=== PATIENT | male | born 1990 | race Caucasian/White ===

== ENCOUNTER 2023-07-20 23:36 | Inpatient (IN) | payer OTHER, SELFPAY ==
[2023-07-20 23:45] VITALS: BP 124/83; PULSE 89; RESP 16; TEMP 36.9; O2SAT 98; BMI 24.7
--- NOTE | 2023-07-20 23:46 | PC.NURSE ---
pt changed over with security, belongings placed in decon
--- NOTE | 2023-07-21 | ECG_ITS ---
Test Reason : chest pain Blood Pressure : / mmHG Vent. Rate : 055 BPM Atrial Rate : 055 BPM P-R Int : 160 ms QRS Dur : 088 ms QT Int : 430 ms P-R-T Axes : 033 054 010 degrees QTc Int : 411 ms Sinus bradycardia with marked sinus arrhythmia with occasional Premature ventricular complexes Otherwise normal ECG When compared with ECG of 21-JUL-2023 02:24, Premature ventricular complexes are now Present Referred By: Marily Blank Electronically Signed By:JOJO BERKOWITZ MD
--- NOTE | 2023-07-21 00:10 | ED.GENADULT ---
HPI - General Adult General Chief complaint: General Medical Stated complaint: possible alcohol withdrawal Time Seen by Provider: 07/21/23 00:05 Source: patient and family Mode of arrival: ambulatory Limitations: altered mental status History of Present Illness HPI narrative: leg pain and cramps. Mother states that he has been gone for 3 days, wandering without shoes, doing drugs Onset (ago): day(s) Severity: mild Related Data Allergies Allergy/AdvReac Type Severity Reaction Status Date / Time No Known Allergies Allergy Verified 07/20/23 23:51 Review of Systems Review of Systems: Yes Unobtainable due to mental status Neurologic: Denies Sensory deficit (Neuro) [facility] Social History Social History Smoked in Last 30 Days: No Use of substances other than those prescribed or required for medical reasons: Yes Substance Use Type: Crack/Cocaine Substance Use Frequency: Chronic Longstanding Last Used Substance: Hours (ago) Advance Directives: No Advance Directives Information Provided: No Physical Exam ED Vital Signs: Vital Signs - 24 hr 07/20/23 23:45 07/21/23 01:39 07/21/23 02:35 Temperature 98.4 F 98.6 F 99.6 F Pulse Rate 89 66 86 Respiratory Rate 16 16 16 Blood Pressure 124/83 133/56 L 103/56 L Pulse Oximetry 98 98 98 Oxygen Delivery Method Room Air Room Air Room Air BMI result Body Mass Index 24.7 Const Other: male appearing tired Nutritional Appearance: average body habitus Orientation/consciousness: oriented to person and patient oriented x3 Limitations: no limitations HENMT Head: Yes normal to inspection Ears: external ears normal General nose exam: Normal external nose present Mouth: Normal oral and palatal mucosa present and oropharynx normal Throat: Yes posterior oropharynx normal Eyes General: appearance normal, both eyes and all related structures Neck Neck: Yes normal visual inspection Chest Chest palpation & inspection: normal inspection of the chest Resp Auscultation: clear to auscultation bilaterally Cardio Jugular venous distension: no JVD Rate: regular rate Rhythm: regular rhythm Heart sounds: S1 normal heart sound present and S2 normal heart sound present GI Inspection: Yes normal to inspection Palpation (GI): Soft to palpation, nontender and No hepatosplenomegaly present Auscultation: normal bowel sounds General: Yes no CVA tenderness Back/Spine/Pelvis Back: no CVA tenderness Skin Other: blisters to feet Neuro General: oriented to person and patient oriented x3 Cranial nerves: Yes CN's II-XII intact bilaterally Motor exam (neuro): 5/5 motor strength present throughout Sensory Exam: No Sensory deficit (Neuro) Extrem Other: soreness to both legs General: Yes normal to inspection Psych Appearance: grossly normal Course Reevaluation(s) Reevaluation #1: EKG normal, no troponin leak, CPK 7000 will admit for rhabdomyolisis Time: 03:16 Medications Administered Generic Name Dose Route Start Last Admin Trade Name Freq PRN Reason Stop Dose Admin Sodium Chloride 1,000 mls @ 999 mls/hr 07/21/23 02:15 07/21/23 02:11 Ns IVCONT 07/21/23 04:15 999 mls/hr .Q1H1M HEIDI Administration Medical Decision Making Differential Diagnosis Differential Diagnoses: The differential diagnosis associated with the presentation includes (Drug intoxication, alcohol withdrawal, rhabdomyolisis, renal failure were all considered) Admission/Observation Consideration of admission/observation: Escalation of care including admission/observation considered (upon arrival patient was considered for admission) Consult Healthcare Provider Management of the patient was discussed with: Hospitalist Lab Data MDM Lab Attestation statement: I reviewed the patient's lab results. (negative troponin, CPK almost 7000) 07/21/23 00:30 07/21/23 00:30 Labs: Lab Results 07/21/23 07/21/23 07/21/23 Range/Units 00:30 01:38 01:41 WBC 13.1 H (4.8-10.8) X10*3/uL RBC 4.81 (4.60-5.80) X10*6/uL Hgb 14.8 (14.0-18.0) g/dl Hct 42.0 (42.0-52.0) % MCV 87.3 (80.0-98.0) fL MCH 30.8 (27.0-33.0) pg MCHC 35.2 (31.0-36.0) g/dl RDW 12.1 (11.0-16.0) % Plt Count 291 (160-400) X10*3/uL MPV 9.7 (9.4-12.4) fL Immature Gran % (Auto) 0.3 (0.0-0.4) % Neut % (Auto) 75.3 H (45-73) % Lymph % (Auto) 14.9 L (20-40) % [place] % (Auto) 8.6 (2-11) % Eos % (Auto) 0.5 (0-4) % Baso % (Auto) 0.4 (0-2) % Lymph # (Auto) 2.0 (1.2-4.9) X10*3/uL [place] # (Auto) 1.1 (0.1-1.2) X10*3/uL Eos # (Auto) 0.1 (0.0-0.4) X10*3/uL Baso # (Auto) 0.1 (0.0-0.2) X10*3/uL Abs Immat Gran (auto) 0.04 H (0.00-0.03) X10*3/uL Absolute Neuts (auto) 9.9 H (2.0-8.3) x10*3/uL Absolute Nucleated RBC 0.000 (0.0-0.012) X10*3/uL Nucleated RBC % (auto) 0.0 (0.0-0.2) /100WBC Sodium 138 (135-145) mmol/L Potassium 3.9 (3.3-5.1) mmol/L Chloride 104 (96-108) mmol/L Carbon Dioxide 25 (22-29) mmol/L Anion Gap 13 (12-20) BUN 8 L (9-16) mg/dL Creatinine 0.96 (0.5-1.4) mg/dL Estim Creat Clear Calc 107.8 Estimated GFR > 60 Random Glucose 113 (60-115) mg/dL Calcium 9.9 (8.4-10.2) mg/dL Magnesium 2.3 (1.6-2.6) mg/dL Total Creatine Kinase 6824 H (38-174) U/L Troponin I High Sens (<3.5-35.0) ng/L Urine Color Yellow Urine Appearance Clear Urine pH 8.0 (5.0-9.0) Ur Specific [place] 1.015 (1.005-1.025) Urine Protein Negative (Neg-Trace) mg/dL Urine Glucose (UA) Negative (Negative) mg/dL Urine Ketones Negative (Negative) mg/dL Urine Blood Negative (Negative) Urine Nitrite Negative (Negative) Ur Leukocyte Esterase Negative (Negative) Urine Opiates Screen Not Detected (Not Detect) Urine Fentanyl Screen Not Detected (Not Detect) Ur Barbiturates Screen Not Detected (Not Detect) Ur Phencyclidine Scrn Not Detected (Not Detect) Ur Amphetamines Screen Not Detected (Not Detect) U Benzodiazepines Scrn Not Detected (Not Detect) Urine Cocaine Screen POSITIVE H (Not Detect) U Marijuana (THC) Screen Not Detected (Not Detect) Ethyl Alcohol < 10 mg/dL 07/21/23 Range/Units 02:45 WBC (4.8-10.8) X10*3/uL RBC (4.60-5.80) X10*6/uL Hgb (14.0-18.0) g/dl Hct (42.0-52.0) % MCV (80.0-98.0) fL MCH (27.0-33.0) pg MCHC (31.0-36.0) g/dl RDW (11.0-16.0) % Plt Count (160-400) X10*3/uL MPV (9.4-12.4) fL Immature Gran % (Auto) (0.0-0.4) % Neut % (Auto) (45-73) % Lymph % (Auto) (20-40) % [place] % (Auto) (2-11) % Eos % (Auto) (0-4) % Baso % (Auto) (0-2) % Lymph # (Auto) (1.2-4.9) X10*3/uL [place] # (Auto) (0.1-1.2) X10*3/uL Eos # (Auto) (0.0-0.4) X10*3/uL Baso # (Auto) (0.0-0.2) X10*3/uL Abs Immat Gran (auto) (0.00-0.03) X10*3/uL Absolute Neuts (auto) (2.0-8.3) x10*3/uL Absolute Nucleated RBC (0.0-0.012) X10*3/uL Nucleated RBC % (auto) (0.0-0.2) /100WBC Sodium (135-145) mmol/L Potassium (3.3-5.1) mmol/L Chloride (96-108) mmol/L Carbon Dioxide (22-29) mmol/L Anion Gap (12-20) BUN (9-16) mg/dL Creatinine (0.5-1.4) mg/dL Estim Creat Clear Calc Estimated GFR Random Glucose (60-115) mg/dL Calcium (8.4-10.2) mg/dL Magnesium (1.6-2.6) mg/dL Total Creatine Kinase (38-174) U/L Troponin I High Sens < 2.7 (<3.5-35.0) ng/L Urine Color Urine Appearance Urine pH (5.0-9.0) Ur Specific [place] (1.005-1.025) Urine Protein (Neg-Trace) mg/dL Urine Glucose (UA) (Negative) mg/dL Urine Ketones (Negative) mg/dL Urine Blood (Negative) Urine Nitrite (Negative) Ur Leukocyte Esterase (Negative) Urine Opiates Screen (Not Detect) Urine Fentanyl Screen (Not Detect) Ur Barbiturates Screen (Not Detect) Ur Phencyclidine Scrn (Not Detect) Ur Amphetamines Screen (Not Detect) U Benzodiazepines Scrn (Not Detect) Urine Cocaine Screen (Not Detect) U Marijuana (THC) Screen (Not Detect) Ethyl Alcohol mg/dL Independent Interpretation I performed an independent interpretation of an: EKG (sinus 70, no st or twave changes) Independent Historian Clinical information obtained from an independent historian. History obtained from or confirmed by: Parent (mother) Chronic Conditions Patient?s care impacted by: Other (drug use) Social Determinants Patient?s care significantly limited by Social Determinants of Health including: Alcoholism and drug addiction in family Discharge Plan Discharge Clinical Impression: Rhabdomyolysis, Cocaine abuse Patient Disposition: Admitted As Inpatient
--- NOTE | 2023-07-21 00:18 | PC.NURSE ---
Family present in room with pt, family reported that pt overdosed a few days ago of unknown drug
[2023-07-21 00:35] LABS: MANUAL DIFF FLAG NO
[2023-07-21 00:37] LABS: Basophils Absolute Auto 0.1 X10*3/uL (0.0-0.2); Basophils Percent Auto 0.4 % (0-2); Eosinophils Absolute Auto 0.1 X10*3/uL (0.0-0.4); Eosinophils Percent Auto 0.5 % (0-4); Hemoglobin 14.8 g/dl (14.0-18.0); Imm Gran Abs Auto 0.04 X10*3/uL (0.00-0.03); Imm Gran Pct Auto 0.3 % (0.0-0.4); Lymphocytes Percent Auto 14.9 % (20-40); Mean Corpuscular HGB Conc 35.2 g/dl (31.0-36.0); Mean Corpuscular Hemoglobin 30.8 pg (27.0-33.0); Mean Corpuscular Volume 87.3 fL (80.0-98.0); Mean Platelet Volume 9.7 fL (9.4-12.4); Monocytes Absolute Auto 1.1 X10*3/uL (0.1-1.2); Monocytes Percent Auto 8.6 % (2-11); Neutrophils Absolute Auto 9.9 x10*3/uL (2.0-8.3); Neutrophils Percent Auto 75.3 % (45-73); Platelet Count 291 X10*3/uL (160-400); Red Blood Count 4.81 X10*6/uL (4.60-5.80); Red Cell Distribution Width 12.1 % (11.0-16.0); White Blood Count 13.1 X10*3/uL (4.8-10.8)
--- NOTE | 2023-07-21 00:37 | PC.NURSE ---
pt reported he lost the battery charger for his hearing aids,
[2023-07-21 00:53] LABS: Anion Gap 13 (12-20); Blood Urea Nitrogen 8 mg/dL (9-16); Calcium 9.9 mg/dL (8.4-10.2); Carbon Dioxide 25 mmol/L (22-29); Chloride 104 mmol/L (96-108); Creatinine Clr Calc Pharmacy 107.8; Estimated Glomerular Filt Rate > 60; Ethanol < 10 mg/dL; Glucose Random 113 mg/dL (60-115); Magnesium 2.3 mg/dL (1.6-2.6); Potassium 3.9 mmol/L (3.3-5.1); Sodium 138 mmol/L (135-145)
--- NOTE | 2023-07-21 01:38 | PC.NURSE ---
pt straight cath for urine. provider aware
[2023-07-21 01:39] VITALS: BP 133/56; PULSE 66; RESP 16; TEMP 37; O2SAT 98
[2023-07-21 01:55] LABS: Appearance Urine Clear; Color Urine Yellow; Glucose Urine UA Negative (Negative); Leukocyte Esterase Urine Negative (Negative); Nitrite Urine Negative (Negative); Specific Gravity - Urine 1.015 (1.005-1.025); Urine Blood Negative (Negative); Urine Ketones Negative (Negative); Urine Protein Negative (Neg-Trace)
[2023-07-21 02:11] LABS: Amphetamine Screen Urine Not Detected (Not Detect); Barbiturates, Urine Not Detected (Not Detect); Benzodiazepines Screen Urine Not Detected (Not Detect); Cannabinoid Screen Urine Not Detected (Not Detect); Cocaine Screen Urine POSITIVE (Not Detect); Fentanyl, urine Not Detected (Not Detect); Opiate Screen Urine Not Detected (Not Detect); Phencyclidine Screen Urine Not Detected (Not Detect)
[2023-07-21] MEDS: 0.9 % Sodium Chloride 1,000 ML 999 ML IVCONT ×2 (02:11→03:15)
--- NOTE | 2023-07-21 02:15 | ECG_ITS ---
Test Reason : DRUG USE Blood Pressure : / mmHG Vent. Rate : 070 BPM Atrial Rate : 070 BPM P-R Int : 166 ms QRS Dur : 088 ms QT Int : 384 ms P-R-T Axes : 063 068 028 degrees QTc Int : 414 ms Normal sinus rhythm with sinus arrhythmia Normal ECG No previous ECGs available Referred By: Mendez Harrison Electronically Signed By:JOJO BERKOWITZ MD
[2023-07-21 02:35] VITALS: BP 103/56; PULSE 86; RESP 16; TEMP 37.6; O2SAT 98
--- NOTE | 2023-07-21 02:49 | MHC.EDTECH ---
Pt ekg taken and was read by Provider ,Trop drawn and sent to lab ,vitals taken ,Pt was hooked up to Scarifier Operator ,Pt belongings list done ,Pt only has a blanket at bedside that his mother brought in ,The rest of Pt belongings are locked up in decon ,Pt alert and oriented ,Pt was moved from [facility] Room # 4 to main ED ROOM #3.
[2023-07-21 03:11] LABS: Troponin-I High Sensitivity < 2.7 ng/L (<3.5-35.0)
--- NOTE | 2023-07-21 03:21 | P.HPHOSP_ITS ---
History of Present Illness Date of Service: 07/21/23 Chief Complaint: Muscle cramps This is a 32-year-old male with pertinent history of cocaine use disorder who presents to the emergency department for evaluation of leg pain and cramps. Unable to obtain history from the patient as patient is very lethargic at the time of my examination. As per patient's mom who was present earlier, patient has been missing for 3 days and has been wandering around doing drugs. Patient is only eye opening to to verbal stimulus and not answering questions or following commands. Unable to obtain review of systems. In the emergency department, UDS was positive for cocaine and CPK found to be elevated Review of Systems 2 Review of Systems: Yes Unobtainable due to mental status PMFSH Medical History Cocaine abuse Pertinent family history: Unable to obtain Social History Smoked in Last 30 Days: No Use of substances other than those prescribed or required for medical reasons: Yes Substance Use Type: Crack/Cocaine Substance Use Frequency: Chronic Longstanding Last Used Substance: Hours (ago) Advance Directives: No Advance Directives Information Provided: No Meds Allergies Allergy/AdvReac Type Severity Reaction Status Date / Time No Known Allergies Allergy Verified 07/20/23 23:51 Active Medications: Current Medications Sodium Chloride (Ns) 1,000 mls @ 999 mls/hr IVCONT .Q1H1M HEIDI Stop: 07/21/23 04:15 Last Admin: 07/21/23 03:15 Dose: 999 mls/hr Physical Exam 2 Vital Signs and Narrative: Vital Signs: Last Vital Signs Temp 99.6 F 07/21/23 02:35 Pulse 86 07/21/23 02:35 Resp 16 07/21/23 02:35 BP 103/56 L 07/21/23 02:35 Pulse Ox 98 07/21/23 02:35 O2 Del Method Room Air 07/21/23 02:35 BMI result Body Mass Index 24.7 Middle-aged male lying in bed in no distress Neck supple, no JVD Regular rate and rhythm, S1-S2 heard Regular breath sounds bilaterally, no wheezing or crackles appreciated Abdomen soft nontender, no guarding, no rigidity Patient is drowsy and only eye opening to verbal stimulus, unable to assess orientation, non conversational and not following commands Results Labs 07/21/23 00:30 07/21/23 00:30 Labs: Laboratory Results - last 24 hr 07/21/23 07/21/23 07/21/23 00:30 01:38 01:41 MCV 87.3 MCH 30.8 MCHC 35.2 RDW 12.1 Plt Count 291 MPV 9.7 Immature Gran % (Auto) 0.3 Neut % (Auto) 75.3 H Lymph % (Auto) 14.9 L [place] % (Auto) 8.6 Eos % (Auto) 0.5 Baso % (Auto) 0.4 Lymph # (Auto) 2.0 [place] # (Auto) 1.1 Eos # (Auto) 0.1 Baso # (Auto) 0.1 Abs Immat Gran (auto) 0.04 H Absolute Neuts (auto) 9.9 H Absolute Nucleated RBC 0.000 Nucleated RBC % (auto) 0.0 Anion Gap 13 Estim Creat Clear Calc 107.8 Estimated GFR > 60 Random Glucose 113 Calcium 9.9 Magnesium 2.3 Total Creatine Kinase 6824 H Urine Color Yellow Urine Appearance Clear Urine pH 8.0 Ur Specific [place] 1.015 Urine Protein Negative Urine Glucose (UA) Negative Urine Ketones Negative Urine Blood Negative Urine Nitrite Negative Ur Leukocyte Esterase Negative Urine Opiates Screen Not Detected Urine Fentanyl Screen Not Detected Ur Barbiturates Screen Not Detected Ur Phencyclidine Scrn Not Detected Ur Amphetamines Screen Not Detected U Benzodiazepines Scrn Not Detected Urine Cocaine Screen POSITIVE H U Marijuana (THC) Screen Not Detected Ethyl Alcohol < 10 Assessment and Plan (1) Rhabdomyolysis: Status: Acute (2) Cocaine abuse: Status: Acute Plan This is a 32-year-old male with pertinent history of cocaine use disorder who presents to the emergency department for evaluation of leg pain and cramps. #. Acute rhabdomyolysis, non exertional and nontraumatic: Due to cocaine use disorder. Will admit patient and continue IV crystalloid resuscitation. No kidney injury. Repeat CPK in a.m. #. Acute toxic encephalopathy in the setting of cocaine use disorder #. Reactive leukocytosis #. Cocaine use disorder: Monitor for withdrawals. Consulting Addiction Team, appreciate assistance DVT prophylaxis: Lovenox Admit as inpatient and will require two night minimum hospital stay for IV crystalloid resuscitation Time Spent With Patient Time: Total time managing care of this patient today ____ minutes. Quality Stroke Does the patient have a stroke diagnosis?: No VTE Prior VTE?: No VTE Risk Level:: Medical - moderate - high VTE Device Contraindication: Treatment Not Indicated VTE Drug Contraindication: N/A - Med Ordered
[2023-07-21] MEDS: Enoxaparin Sodium 40 MG/0.4 ML SYRINGE SUBCUT (04:28)
--- NOTE | 2023-07-21 04:28 | PC.NURSE ---
Fluids delayed due to previously ordered fluids flowing slowly. Floor RN aware.
[2023-07-21 04:47] LABS: MANUAL DIFF FLAG NO
[2023-07-21 04:49] LABS: Basophils Percent Auto 0.3 % (0-2); Eosinophils Absolute Auto 0.1 X10*3/uL (0.0-0.4); Eosinophils Percent Auto 0.8 % (0-4); Hematocrit 40.4 % (42.0-52.0); Hemoglobin 14.1 g/dl (14.0-18.0); Imm Gran Abs Auto 0.03 X10*3/uL (0.00-0.03); Imm Gran Pct Auto 0.3 % (0.0-0.4); Lymphocytes Absolute Auto 1.8 X10*3/uL (1.2-4.9); Mean Corpuscular HGB Conc 34.9 g/dl (31.0-36.0); Mean Corpuscular Hemoglobin 30.9 pg (27.0-33.0); Mean Corpuscular Volume 88.4 fL (80.0-98.0); Mean Platelet Volume 9.8 fL (9.4-12.4); Monocytes Absolute Auto 1.1 X10*3/uL (0.1-1.2); Monocytes Percent Auto 9.9 % (2-11); Neutrophils Absolute Auto 7.6 x10*3/uL (2.0-8.3); Neutrophils Percent Auto 71.7 % (45-73); Platelet Count 267 X10*3/uL (160-400); Red Blood Count 4.57 X10*6/uL (4.60-5.80); Red Cell Distribution Width 12.3 % (11.0-16.0); White Blood Count 10.6 X10*3/uL (4.8-10.8)
[2023-07-21 05:03] LABS: Anion Gap 14 (12-20); Blood Urea Nitrogen 7 mg/dL (9-16); Calcium 8.4 mg/dL (8.4-10.2); Carbon Dioxide 21 mmol/L (22-29); Chloride 111 mmol/L (96-108); Estimated Glomerular Filt Rate > 60; Glucose Random 107 mg/dL (60-115); Sodium 142 mmol/L (135-145)
[2023-07-21] MEDS: 0.9 % Sodium Chloride 1,000 ML 150 ML IVCONT ×4 (05:27→23:31)
[2023-07-21 05:30] VITALS: BMI 25.9
[2023-07-21 06:31] VITALS: BP 121/67; PULSE 65; RESP 18; TEMP 36.5; O2SAT 97
[2023-07-21 07:30] VITALS: BP 107/72; PULSE 69; RESP 18; TEMP 36.2; O2SAT 98
--- NOTE | 2023-07-21 08:26 | PHA.MEDREC ---
Pharmacy Consult ? Medication Reconciliation Pharmacy has completed the medication reconciliation.PT STATES IT'S BEEN SEVERAL WEEKS SINCE TAKING HIS MEDICATION. ONLY ON SUBOXONE.
--- NOTE | 2023-07-21 10:36 | PM.EVENT ---
Event Note Date of Service: 07/21/23 Event Note: This is a 32-year-old male with pertinent history of cocaine use disorder who presents to the emergency department for evaluation of leg pain and cramps. Acute rhabdomyolysis non exertional and nontraumatic Due to cocaine use disorder. continue IV crystalloid resuscitation. No kidney injury. Repeat CPK down to 4911 Acute toxic encephalopathy. Resolved in the setting of cocaine use disorder Reactive leukocytosis resolved Cocaine use disorder Monitor for withdrawals. Consulting Addiction Team DVT prophylaxis: Lovenox Attending Dr. Keen Admit as inpatient and will require two night minimum hospital stay for IV crystalloid resuscitation Time Spent With Patient Time: Total time managing care of this patient today ____ minutes.
[2023-07-21] MEDS: Buprenorphine/Naloxone 4/1 mg FILM 1 FILM SUBLINGUAL (13:14)
--- NOTE | 2023-07-21 14:07 | MHC.RECOVRN ---
atomizer assembler met with patient in room 359-1 for Addiction Medicine Consult for Cocaine Use. Patient is awake, just laying back down from using the restroom. He admits to feeling tired, but agreeable to talk. Patient is very [place]- reports he does not have his hearing aides. Patient confirmed he is able to read, therefore RN showed him questions and he responded accordingly. He came to the ER for leg pain/cramps. Family had reported patient was missing for 3 days doing drugs . Patient reports he first started using cocaine in 2015 by snorting it, he then began smoking it instead. Reports a history of 1 overdose ~3 years ago. He states he's had long periods of abstinence, however relapsed recently. I was sober for 12 months up until 3 weeks ago. Then I relapsed and smoked cocaine for like 4 days straight. Then I stopped for 2 weeks and I relapsed again on . I smoked cocaine , Saturday, and Saturday. Patient used ~10 baggies per day with each relapse. Last use was last night around 7pm. He is on Suboxone- take home doses from [facility] in [place]. Last filled 06/19/23: 4-1mg films, dose= 6mg PO daily. Given 28 days worth. Prescriber Sommer Nguyen. Patient stated that he had run out and had not taken his Suboxone in 4 days as he had an issue with [employer] and his insurance. Currently, he reports to craving cocaine a little bit . He admits to feeling really tired as he hasn't slept in days . He reports feeling sweaty- hot/cold, having one bout of diarrhea just prior to my visit, having a runny nose, feeling anxious and mild full body aches. Denies N/V, tremor, yawning, or h/a. Patient also reports occ cigarette smoking- interested in patch if he feels withdrawal symptoms. Will notify covering RN. Patient verbalized wanting to fully abstain from cocaine use. He would like to get back on track with the Suboxone use and DC back to his regular clinic. Patient requesting to sleep, left educational material for him to review when ready. Discussed w/Tiana Dorantes APRN. Suboxone ordered.
[2023-07-21 15:39] VITALS: BP 117/59; PULSE 59; RESP 18; TEMP 36; O2SAT 97
--- NOTE | 2023-07-21 16:50 | MHC.CM.PN ---
CM ATTEMPTED TO MEET WITH PT WHO HAD SEVERAL VISITORS AND A NURSE IN THE ROOM CM WILL RETURN
[2023-07-21 18:33] LABS: Troponin-I High Sensitivity < 2.7 ng/L (<3.5-35.0)
[2023-07-21 20:00] VITALS: BP 125/57; PULSE 66; RESP 18; TEMP 36; O2SAT 97
[2023-07-22] MEDS: Enoxaparin Sodium 40 MG/0.4 ML SYRINGE SUBCUT (03:08)
[2023-07-22 04:00] VITALS: BP 129/64; PULSE 89; RESP 16; TEMP 36.3; O2SAT 93
[2023-07-22] MEDS: 0.9 % Sodium Chloride 1,000 ML 150 ML IVCONT (05:56)
[2023-07-22 07:29] VITALS: BP 109/68; PULSE 55; RESP 16; TEMP 36.2; O2SAT 97
[2023-07-22] MEDS: Buprenorphine/Naloxone 4/1 mg FILM 1 FILM SUBLINGUAL (08:38)
[2023-07-22 09:02] LABS: Anion Gap 10 (12-20); Blood Urea Nitrogen 5 mg/dL (9-16); Calcium 8.5 mg/dL (8.4-10.2); Carbon Dioxide 23 mmol/L (22-29); Chloride 112 mmol/L (96-108); Creatinine Clr Calc Pharmacy 124.7; Estimated Glomerular Filt Rate > 60; Glucose Random 103 mg/dL (60-115); Potassium 3.9 mmol/L (3.3-5.1); Sodium 141 mmol/L (135-145)
--- NOTE | 2023-07-22 09:18 | PM.DS ---
DS: Providers Provider Date of Service: 07/22/23 Date of admission: 07/21/23 03:19 Primary care physician: Unknown Physician Consults: 07/21/23 03:21 Addiction Medicine Routine Consulting Provider: Addiction Fredo Reason for consultation: cocaine use disorder DS: Diagnosis Discharge Diagnosis (1) Rhabdomyolysis: Status: Acute (2) Cocaine abuse: Status: Acute DS: Summary Hospital Course Hospital Course: This is a 32-year-old male with pertinent history of cocaine use disorder who presents to the emergency department for evaluation of leg pain and cramps. Unable to obtain history from the patient as patient is very lethargic at the time of my examination. As per patient's mom who was present earlier, patient has been missing for 3 days and has been wandering around doing drugs. Patient is only eye opening to to verbal stimulus and not answering questions or following commands. Unable to obtain review of systems. In the emergency department, UDS was positive for cocaine and CPK found to be elevated 32-year-old man treated for acute rhabdomyolysis after being found down for unknown period of time. He has history of smoking cocaine. He was treated with IV fluids, he had no acute kidney injury. His CPK has trended down significantly. Initially had acute toxic encephalopathy likely secondary to the cocaine use but resolved. He was seen evaluated by the Addiction Medicine team and is on Suboxone. He was encouraged to seek outpatient treatments for cessation of drug use. Time Spent with Patient Time attestation: Total time managing care of this patient today ____ minutes. Discharge coordination time: Greater than 30 minutes Quality: Safe Use of Opioids Does Pt have an Active Cancer Diagnosis on the Problem List?: No Quality: Stroke Does the patient have a stroke diagnosis?: No Physical Exam Vital Signs: Vital Signs: Last Vital Signs Temp 97.1 F 07/22/23 07:29 Pulse 55 07/22/23 07:29 Resp 16 07/22/23 07:29 BP 109/68 07/22/23 07:29 Pulse Ox 97 07/22/23 07:29 O2 Del Method Room Air 07/22/23 07:29 BMI result Body Mass Index 25.9 Appearing in no acute distress, hard of hearing head is normocephalic atraumatic eyes pupils are PERRLA sclera is anicteric mouth throat mucous membranes are intact and moist neck is supple no lymphadenopathy, no JVD noted lung sounds are clear to auscultation heart regular rate rhythm, clear S1, S2 positive bowel sounds, abdomen is soft, nontender neuro patient is alert x3, no focal deficits DS: Data Data Completed and Pending Labs on day of discharge: Laboratory Results - last 24 hr 07/21/23 07/22/23 17:47 08:16 Sodium 141 Potassium 3.9 Chloride 112 H Carbon Dioxide 23 Anion Gap 10 L BUN 5 L Creatinine 0.83 Estim Creat Clear Calc 124.7 Estimated GFR > 60 Random Glucose 103 Calcium 8.5 Total Creatine Kinase 1574 H Troponin I High Sens < 2.7 Discharge Plan Discharge Anticipated Discharge Date/Time: 07/22/23 09:16 Patient Disposition: Home, Self-Care Discharge Diagnosis: Acute rhabdomyolysis Cocaine abuse Referrals: Tiana Dorantes CNP [Nurse Practitioner] - 1 Week Discharge Medications: Continued buprenorphine-naloxone 4-1 mg film 7 mg sublingual DAILY Discharge Orders: Discharge Order (Routine); Ordered 07/22/23 Ordered By: Marily Blank Diet: Advance to usual diet Activity on Discharge: As tolerated Stand Alone Forms: Patient Portal Discharge page Care Plan Goals: Stop using illicit drugs. Seek out outpatient resources for help with cessation. Health Concerns: Rhabdomyolysis Cocaine abuse Plan of Treatment: Follow-up with primary care provider as needed Take all medications as prescribed Assessment: See discharge summary
--- NOTE | 2023-07-22 09:36 | MHC.CM.PN ---
pt being dcd has own transportaion no servies
== END 2023-07-22 12:53 | disposition home or self-care (01) | DRG 557 ==
LOC: HO.ED 07-21 03:21 → HO.EDOVER 07-21 03:27 → HO.S3 07-21 03:36
PROVIDERS: Admitting Provider Student in an Organized Health Care Education/Training Program; Emergency Provider Emergency Medicine; Visit Provider Nurse Practitioner Acute Care
DX: M62.82 Rhabdomyolysis (principal); G92.8 Other toxic encephalopathy; F11.20 Opioid dependence, uncomplicated; F14.10 Cocaine abuse, uncomplicated
CPT/HCPCS: 36415; 80048; 80307; 81003; 82550; 83735; 84484; 85025; 93005; 99285; J1650

== ENCOUNTER → 2023-07-21 03:19 | Outpatient (BNV) | payer SELFPAY | PROVIDERS: Admitting Provider Student in an Organized Health Care Education/Training Program; Emergency Provider Emergency Medicine; Visit Provider Student in an Organized Health Care Education/Training Program | DX: M62.82 Rhabdomyolysis (principal); F14.10 Cocaine abuse, uncomplicated; Z59.00 Homelessness unspecified | CPT/HCPCS: 99222; 99239; 99499 ==

== ENCOUNTER 2023-12-31 04:05 | Emergency (ER) | payer OTHER, SELFPAY ==
--- NOTE | 2023-12-31 | ECG_ITS ---
Test Reason : ETOH Blood Pressure : / mmHG Vent. Rate : 076 BPM Atrial Rate : 076 BPM P-R Int : 168 ms QRS Dur : 088 ms QT Int : 378 ms P-R-T Axes : 058 064 028 degrees QTc Int : 425 ms Normal sinus rhythm Normal ECG When compared with ECG of 21-JUL-2023 17:25, Premature ventricular complexes are no longer Present T wave inversion no longer evident in Anterior leads Referred By: Generic ED Physician Electronically Signed By:Arie Bhandari
[2023-12-31 04:25] VITALS: BMI 21.8
[2023-12-31 04:33] VITALS: BP 134/95; PULSE 88; RESP 16; TEMP 36.8; O2SAT 99
--- NOTE | 2023-12-31 04:45 | PC.NURSE ---
PT is currently denying SI, reports I was just being me .Denies HI, AH/VH. Reports recent crack cocaine use as well as alcohol consumption. Changed over with security, sitter at bedside for safety. Awaiting provider.
[2023-12-31 05:10] LABS: MANUAL DIFF FLAG NO
[2023-12-31 05:11] LABS: Basophils Absolute Auto 0.1 X10*3/uL (0.0-0.2); Basophils Percent Auto 0.5 % (0-2); Eosinophils Percent Auto 0.4 % (0-4); Hematocrit 43.7 % (42.0-52.0); Imm Gran Abs Auto 0.03 X10*3/uL (0.00-0.03); Imm Gran Pct Auto 0.3 % (0.0-0.4); Lymphocytes Absolute Auto 2.3 X10*3/uL (1.2-4.9); Lymphocytes Percent Auto 25.1 % (20-40); Mean Corpuscular HGB Conc 34.3 g/dl (31.0-36.0); Mean Corpuscular Hemoglobin 31.1 pg (27.0-33.0); Mean Corpuscular Volume 90.7 fL (80.0-98.0); Mean Platelet Volume 9.5 fL (9.4-12.4); Monocytes Absolute Auto 0.5 X10*3/uL (0.1-1.2); Monocytes Percent Auto 5.7 % (2-11); Neutrophils Absolute Auto 6.2 x10*3/uL (2.0-8.3); Platelet Count 281 X10*3/uL (160-400); Red Blood Count 4.82 X10*6/uL (4.60-5.80); Red Cell Distribution Width 12.2 % (11.0-16.0); White Blood Count 9.2 X10*3/uL (4.8-10.8)
[2023-12-31 05:21] LABS: Amphetamine Screen Urine Not Detected (Not Detect); Barbiturates, Urine Not Detected (Not Detect); Benzodiazepines Screen Urine Not Detected (Not Detect); Cannabinoid Screen Urine Not Detected (Not Detect); Cocaine Screen Urine POSITIVE (Not Detect); Fentanyl, urine Not Detected (Not Detect); Opiate Screen Urine Not Detected (Not Detect); Phencyclidine Screen Urine Not Detected (Not Detect)
[2023-12-31 05:34] LABS: Alanine Aminotransferase 17 U/L (0-40); Albumin Level 4.6 g/dL (3.5-5.0); Alkaline Phosphatase 85 U/L (39-117); Anion Gap 14 (12-20); Aspartate Amino Transferase 23 U/L (5-37); Bilirubin Total 0.4 mg/dL (0.0-1.0); Blood Urea Nitrogen 10 mg/dL (9-16); Calcium 9.3 mg/dL (8.4-10.2); Carbon Dioxide 26 mmol/L (22-29); Chloride 108 mmol/L (96-108); Creatinine Clr Calc Pharmacy 103.2; Estimated Glomerular Filt Rate > 60; Ethanol 133 mg/dL; Glucose Random 82 mg/dL (60-115); Potassium 4.2 mmol/L (3.3-5.1); Sodium 144 mmol/L (135-145); Total Protein 7.5 g/dL (6.5-8.0)
--- NOTE | 2023-12-31 05:46 | PC.NURSE ---
patient expresses desire to see care team, expressed to patient about sobriety client expresses passive defiance to established norms.
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
[2023-12-31 07:34] VITALS: BP 120/74; PULSE 70; RESP 20; TEMP 36.6; O2SAT 99
--- NOTE | 2023-12-31 08:05 | PC.NURSE ---
PT IS A/O X 3 NO SOB/COLLEEN NOTED SPEAKS IN FULL SENTENCES. AMB (I) GAIT STEADY TO BATHROOM, HALLWAY AND BTB. PT IS MOSTLY PACING THE HALLWAY AND KEEPS ASKING ABOUT WHEN HE IS GOING TO BE D/C'D HOME. PT DENIES ANY SI/HI. PT ALSO DENIES ANY PAIN/DISC. PT AWARE OF PLAN OF CARE. WILL CONTINUE TO MONITOR.
--- NOTE | 2023-12-31 12:44 | PC.NURSE ---
PT'S MOTHER IS INN THE HALLWAY WITH THE PT. PT IS BEING EVAL BY NIDA SANON. PT AWARE OF PLAN OF CARE.
[2023-12-31 13:44] VITALS: BP 120/74; PULSE 70; RESP 20; TEMP 36.6; O2SAT 99
== END 2023-12-31 14:06 | disposition home or self-care (01) ==
PROVIDERS: Emergency Provider Emergency Medicine
DX: F14.10 Cocaine abuse, uncomplicated (principal)
CPT/HCPCS: 36415; 80053; 80307; 85025; 93005; 99285; S9485

== ENCOUNTER → 2023-12-31 05:23 | Outpatient (BNV) | payer OTHER, SELFPAY | PROVIDERS: Emergency Provider Emergency Medicine; Visit Provider Internal Medicine Cardiovascular Disease | DX: I49.3 Ventricular premature depolarization (principal) | CPT/HCPCS: 93010 ==

== ENCOUNTER → 2024-01-02 16:18 | Outpatient (AMB) | payer OTHER, SELFPAY ==
[2024-01-02 16:26] VITALS: BP 110/60; PULSE 89; RESP 16; O2SAT 98
--- NOTE | 2024-01-02 16:26 | MHC.AM.SUB ---
Intake Vital Signs 01/02/24 16:26 BP 110/60 Blood Pressure Location Lt brachial Position Sitting Respiration 16 Pulse 89 Pulse Source Pulse Oximeter Pulse Oximetry (%) 98 Intake Visit Reasons: Intake Allergies No Known Allergies Allergy (Verified 12/31/23 04:35) HPI Intake HPI Details Patient presents for intake as referral from CARE Team Pt presents as guarded and vaguely paranoid Difficult to obtain information from him during interview States last visit to PCP was 1.5 yrs ago Currently unemployed and living with his boss Would like to get out of here referring to the area, but declining to disclose where he wants to go because they might find out , would no elaborate who they are Reports intermittent cocaine use Started using hardcore when he was 27 When asked the amount he was using he replied depends Has been section 35 a couple of times Feels as though he does not crave cocaine and can stop whenever he would like Not receptive to any recovery supports discussed HPI Comments History of Present Illness Details Patient presents for MAT visit [facility] Medical History (Updated 01/07/24 @ 14:10 by Ratna Sommers NP) Cocaine abuse Social History Household Members: Unknown / Unable to assess Housing: Unknown / Unable to assess Unable to assess alcohol history related to: Unknown Patient Tobacco Use Status: Tobacco use Unknown Substance Use Type: Crack/Cocaine service: No Review of Systems Const Reports as per HPI Physical Exam Vital Signs: Last Vital Signs Pulse 89 01/02/24 16:26 Resp 16 01/02/24 16:26 BP 110/60 01/02/24 16:26 Pulse Ox 98 01/02/24 16:26 Const General: healthy appearing and no acute distress Resp Effort & Inspection: normal respiratory effort and able to speak in complete sentences Psych Appearance: grossly normal Mental Status: mental status grossly normal Speech and movement: Normal speech and movement present Affect: Indifferent affect present Attitude: Guarded attititude/behavior present Thought process: Normal thought process present Assessment & Plan Assessment & Plan (1) Cocaine abuse: Code(s): F14.10 - Cocaine abuse, uncomplicated Plan: -Pt provided with fentanyl strips and instructed how to use them -Harm reduction discussed -Follow up as needed with CCC Coding Level of Care Code New Pt Level 4 (82479) Diagnoses Cocaine abuse F14.10
== END ==
PROVIDERS: Visit Provider Nurse Practitioner Family
DX: F14.10 Cocaine abuse, uncomplicated (principal)
CPT/HCPCS: 99204

== ENCOUNTER → 2024-01-02 16:18 | Outpatient (BNVA) | payer OTHER, SELFPAY | PROVIDERS: Visit Provider Nurse Practitioner Family | DX: F14.10 Cocaine abuse, uncomplicated (principal) | CPT/HCPCS: 99202 ==

== ENCOUNTER 2024-01-30 17:28 | Emergency (ER) | payer OTHER, SELFPAY ==
--- NOTE | ~2024-01-30 | XR_ITS ---
EXAMINATION: XR HAND, RIGHT CLINICAL INFORMATION: Pain of right hand. Swelling and tenderness. COMPARISON: None available. TECHNIQUE: PA, lateral, and oblique views of the right hand. FINDINGS: Bones have normal alignment throughout the hand and wrist. No acute fracture or subluxation. Old healed boxer's fracture of the fifth metacarpal. The joint spaces are maintained. No erosions or periostitis. There appears to be nonspecific soft tissue swelling of the hand without radiopaque foreign body or soft tissue gas. XR/XR hand RT min 3V IMPRESSION: * Old healed boxer's fracture of the fifth metacarpal. * Otherwise, bones and joints of the hand and wrist are normal. No evidence of acute osseous injury or osteomyelitis. * There appears to be nonspecific soft tissue swelling of the hand.
[2024-01-30 17:37] VITALS: BP 166/100; PULSE 112; O2SAT 98
--- NOTE | 2024-01-30 17:37 | ECG_ITS ---
Test Reason : ETOH/SUBSTANCE Blood Pressure : / mmHG Vent. Rate : 088 BPM Atrial Rate : 088 BPM P-R Int : 170 ms QRS Dur : 092 ms QT Int : 372 ms P-R-T Axes : 068 070 015 degrees QTc Int : 450 ms Sinus rhythm with frequent Premature ventricular complexes Otherwise normal ECG When compared with ECG of 31-DEC-2023 05:23, Premature ventricular complexes are now Present Referred By: Jordon Silveira Electronically Signed By:Arie Bhandari
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
[2024-01-30 17:51] VITALS: BP 156/90; PULSE 103; RESP 16; TEMP 37.5; O2SAT 99
[2024-01-30 17:58] VITALS: BP 156/90; PULSE 103; RESP 16; TEMP 37.5; O2SAT 99; BMI 27.4
[2024-01-30 18:14] LABS: MANUAL DIFF FLAG NO
[2024-01-30 18:22] LABS: Basophils Absolute Auto 0.1 X10*3/uL (0.0-0.2); Basophils Percent Auto 0.4 % (0-2); Eosinophils Percent Auto 0.2 % (0-4); Hematocrit 38.6 % (42.0-52.0); Hemoglobin 14.2 g/dl (14.0-18.0); Imm Gran Abs Auto 0.07 X10*3/uL (0.00-0.03); Imm Gran Pct Auto 0.5 % (0.0-0.4); Lymphocytes Absolute Auto 1.6 X10*3/uL (1.2-4.9); Lymphocytes Percent Auto 11.8 % (20-40); Mean Corpuscular HGB Conc 36.8 g/dl (31.0-36.0); Mean Corpuscular Hemoglobin 32.1 pg (27.0-33.0); Mean Corpuscular Volume 87.3 fL (80.0-98.0); Mean Platelet Volume 9.5 fL (9.4-12.4); Monocytes Absolute Auto 1.3 X10*3/uL (0.1-1.2); Monocytes Percent Auto 9.5 % (2-11); Neutrophils Absolute Auto 10.6 x10*3/uL (2.0-8.3); Neutrophils Percent Auto 77.6 % (45-73); Platelet Count 224 X10*3/uL (160-400); Red Blood Count 4.42 X10*6/uL (4.60-5.80); Red Cell Distribution Width 11.8 % (11.0-16.0); White Blood Count 13.6 X10*3/uL (4.8-10.8)
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
[2024-01-30 18:34] LABS: Alanine Aminotransferase 24 U/L (0-40); Albumin Level 4.4 g/dL (3.5-5.0); Alkaline Phosphatase 82 U/L (39-117); Anion Gap 14 (12-20); Aspartate Amino Transferase 39 U/L (5-37); Bilirubin Direct 0.3 mg/dL (0.0-0.5); Bilirubin Total 0.8 mg/dL (0.0-1.0); Blood Urea Nitrogen 13 mg/dL (9-16); Calcium 9.4 mg/dL (8.4-10.2); Carbon Dioxide 23 mmol/L (22-29); Chloride 106 mmol/L (96-108); Creatinine Clr Calc Pharmacy 103.9; Estimated Glomerular Filt Rate > 60; Ethanol < 10 mg/dL; Glucose Random 116 mg/dL (60-115); Lipase 11 U/L (8-78); Potassium 3.4 mmol/L (3.3-5.1); Sodium 140 mmol/L (135-145); Total Protein 6.9 g/dL (6.5-8.0)
[2024-01-30 18:42] VITALS: PULSE 103
--- NOTE | 2024-01-30 19:05 | PC.NURSE ---
Per MD Silveira pt now under section 12 (placed in locker 9). pt changed over into hospital attire, threatening security staff.
--- NOTE | 2024-01-30 19:16 | PC.NURSE ---
report given to CHERI Salvador pt to move to Pod
[2024-01-30] MEDS: Doxycycline Monohydrate 100 MG CAPSULE PO (19:38)
[2024-01-30 19:55] LABS: Appearance Urine Clear; Color Urine Yellow; Glucose Urine UA Negative (Negative); Leukocyte Esterase Urine Negative (Negative); Nitrite Urine Negative (Negative); UMIC TRIGGER UACC YES; Urine Blood Trace (Negative); Urine Ketones Trace mg/dL (Negative); Urine Protein Negative (Neg-Trace)
[2024-01-30 19:58] LABS: Bacteria Urine None Seen (None Seen); Hyaline Casts Urine 0-2 /LPF (0-2); Squamous Epithelial Cell Urine 0-2 /HPF (0-2); WBC Urine 0-5 /HPF (0-5)
--- NOTE | 2024-01-30 20:00 | PC.NURSE ---
PT moved from 6h to BH6, En route pt verbally aggressive, slammed glasses. Security and PD who were present for another PT, assisted this RN in getting PT to walk to pod. PT complaining of right ankle plain. He was assess by provider and noted to have been walking several time with a steady gait prior to being asked to go to behavior pd. PT cursing at , substance abuse technician, threw sunglasses on floor, and threatening staff. PT needing several of redirections. Encourage to lay down to take pressure of ankles. PT now resting in bed yelling obscenities, but is not exhibiting unsafe behavior at this time.
[2024-01-30 20:03] LABS: Amphetamine Screen Urine Not Detected (Not Detect); Barbiturates, Urine Not Detected (Not Detect); Benzodiazepines Screen Urine Not Detected (Not Detect); Buprenorphine Scr Positive (Not Detect); Cannabinoid Screen Urine POSITIVE (Not Detect); Cocaine Screen Urine POSITIVE (Not Detect); Fentanyl, urine Not Detected (Not Detect); Methadone Screen, Urine Not Detected (Not Detect); Opiate Screen Urine Not Detected (Not Detect); Oxycodone Screen Urine Not Detected (Not Detect); Phencyclidine Screen Urine Not Detected (Not Detect)
--- NOTE | 2024-01-30 20:12 | PC.NURSE ---
spoke with pt family member gabby [phone] advised pt is being held on sec 12. family understands plan
[2024-01-30] MEDS: LORazepam 1 MG TABLET 2 MG PO (22:31)
[2024-01-30] MEDS: diphenhydrAMINE HCL 25 MG CAPSULE 50 MG PO (22:31)
[2024-01-30] MEDS: HaloperidoL 5 MG TABLET PO (22:31)
--- NOTE | 2024-01-30 22:35 | PC.NURSE ---
Pt becoming increasingly agitated, fully undressing, engaging in self dialogue, and continuing to threaten staff, Medicated as per KAYLIE.
[2024-01-31 04:26] VITALS: BP 99/61; PULSE 60; RESP 17; TEMP 36.8; O2SAT 96
--- NOTE | 2024-01-31 04:30 | MHC.CARE ---
Please contact Mei ([facility] [phone]) regarding any questions. She has been given permission by the family to assist in communicating with the ER due to families reported language barrier. The family is from the [facility].
--- NOTE | 2024-01-31 07:30 | PC.NURSE ---
Assumed care of patient 0645, patient appears to be sleeping with fitted sheet over him, respirations even and unlabored, no apprent distress. Continue plan of care for holding patient until Section 35 goes through
--- NOTE | 2024-01-31 11:56 | MHC.CARE ---
CARE Team spoke with Mei who stated a Section 35 was completed by Pts parents. CARE Team to follow up with Caro Crocker.
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
[2024-01-31 13:26] VITALS: BP 113/62; PULSE 61; RESP 17; TEMP 36.2; O2SAT 98
[2024-01-31 13:57] VITALS: BP 113/62; PULSE 61; RESP 17; TEMP 36.2; O2SAT 98
== END 2024-01-31 13:59 ==
PROVIDERS: Emergency Provider Student in an Organized Health Care Education/Training Program
DX: F23 Brief psychotic disorder (principal); M79.641 Pain in right hand; T40.5X1A Poisoning by cocaine, accidental (unintentional), initial encounter; Y92.9 Unspecified place or not applicable; F14.10 Cocaine abuse, uncomplicated; R45.851 Suicidal ideations; R94.31 Abnormal electrocardiogram [ECG] [EKG]; Z79.899 Other long term (current) drug therapy
CPT/HCPCS: 36415; 73130; 80048; 80076; 80307; 81001; 83690; 85025; 93005; 99285; S9485

== ENCOUNTER → 2024-01-30 17:37 | Outpatient (BNV) | payer OTHER, SELFPAY | PROVIDERS: Emergency Provider Student in an Organized Health Care Education/Training Program; Visit Provider Internal Medicine Cardiovascular Disease | DX: I49.3 Ventricular premature depolarization (principal) | CPT/HCPCS: 93010 ==

== ENCOUNTER 2025-04-29 09:03 | Emergency (ER) | payer OTHER, SELFPAY ==
[2025-04-29 09:13] VITALS: BP 102/61; PULSE 76; RESP 14; TEMP 36.8; O2SAT 98; BMI 29.7
--- NOTE | 2025-04-29 09:32 | ED_ITS ---
HPI - Allergic Reaction General Chief complaint: Allergic Reaction Stated complaint: facial bee stings at work Time Seen by Provider: 04/29/25 09:09 Source: patient Mode of arrival: ambulatory Limitations: no limitations History of Present Illness ED Provider: Leisa Wright PA-C HPI narrative: Patient reports to ED today for evaluation of bee sting to the top left eyebrow. It occurred 30 mins prior to arrival. No prior anaphylaxis. Reports both eyes are swollen and top of nose, feels nasal congestion. No GI distress or dyspnea. Denies any wheezing or shortness of breath does not feel like his throat was closing no lip or tongue swelling. Patient can not recall whether or not he was stung by a bee before in the past. He has no history of anaphylaxis. Prior to arrival when of his coworkers gave him 25 mg of a tablet of Benadryl as well as 500 mg of Motrin. He denies any rashes on his body. His co-worker got stung as well. Patient reports he freaked out at the time of the incident and laid down on the ground to try to calm himself down as it was very painful the pain have subsided. Denies syncope or accidental fall. He denies visual changes to myself, just that when his eye is puffy, it blocks his ability to see out of his eye secondary to not being to open it fully. MD complaint: allergic reaction and facial swelling Symptoms: facial swelling Severity: moderate Treatment prior to arrival: benadryl and other (motrin) Related Data Home Medications ?Medication ?Instructions ?Recorded ?Confirmed buprenorphine 4 mg-naloxone 1 mg 7 mg sublingual DAILY 07/21/23 07/21/23 sublingual film Previous Rx's ?Medication ?Instructions ?Recorded doxycycline hyclate 100 mg capsule 100 mg PO BID Cellu litis #20 caps 01/30/24 epinephrine 0.3 mg/0.3 mL 0.3 mg (0.3 mL) IM Q10M PRN 04/29/25 injection, auto-injector (EpiPen anaphylaxis #2 ea 2-Thom) prednisone 20 mg tablet 40 mg (2 x 20 mg) PO DAILY # 8 tabs 04/29/25 Allergies Allergy/AdvReac Type Severity Reaction Status Date / Time No Known Allergies Allergy Verified 04/29/25 09:14 Review of Systems Review of Systems: Yes all other systems are reviewed and are negative PMFSH Past Medical History Attestation statement: The following information was validated with the patient. Source: old records reviewed and nursing notes reviewed Medical History Cocaine abuse Social History Social History Household Members: Unknown / Unable to assess Housing: Unknown / Unable to assess Unable to assess alcohol history related to: Unknown Patient Tobacco Use Status: Tobacco use Unknown Smoked in Last 30 Days: Yes Use of substances other than those prescribed or required for medical reasons: No Substance Use Type: Crack/Cocaine Advance Directives: No Advance Directives Information Provided: Yes Do you have a plan to hurt others: No Plan service: No Physical Exam ED Vital Signs: Vital Signs - 24 hr 04/29/25 09:13 04/29/25 11:13 04/29/25 11:27 Temperature 98.3 F 97.2 F Pulse Rate 76 60 62 Respiratory Rate 14 17 22 H Blood Pressure 102/61 110/78 Pulse Oximetry 98 100 97 Oxygen Delivery Method Room Air Room Air Room Air BMI result Body Mass Index 29.7 Const General: cooperative, healthy appearing, comfortable, no acute distress, well developed, alert, awake and Physically active Nutritional Appearance: average body habitus Orientation/consciousness: patient oriented x3 Limitations: no limitations HENMT Head: Yes No palpable skull fracture present and Yes normocephalic Ears: hearing grossly normal bilaterally and external ears normal General nose exam: Normal external nose present, Normal nares present and Normal nasal mucous membranes and turbinates present Face and sinus: Yes sinuses nontender Mouth: Normal oral and palatal mucosa present, lip normal, tongue normal, Normal salivary glands and ducts present, oropharynx normal and moist mucous membranes Teeth and gingiva: dentition normal and gingiva normal Throat: Yes posterior oropharynx normal, Yes tonsils normal and Yes uvula midline Eyes Visual Boles: normal visual boles by confrontation Alignment and Position: alignment normal Eyelids: Yes eyelid abnormality (lid edema b/l L> R, left upper lateral superior lid with sting pinpoint) and Yes other (no erythema, EOMs intact nonpainful) Conjunctivae: conjunctivae normal Sclerae: sclerae normal Corneas: corneas normal Pupils: Equal, round and reactive pupils present EOM: EOMs intact bilaterally Neck Neck: Yes normal visual inspection, Yes full ROM, Yes no lymphadenopathy, Yes trachea midline and Yes supple Thyroid: Thyroid normal Carotids: normal carotid upstroke Lymphatic: no lymphadenopathy noted Chest Chest palpation & inspection: normal inspection of the chest and normal palpation of entire chest wall Resp Effort & Inspection: normal respiratory effort and able to speak in complete sentences Auscultation: clear to auscultation bilaterally Neuro General: patient oriented x3 Cranial nerves: Yes Equal, round and reactive pupils present Medications Administered Discontinued Medications Generic Name Dose Route Start Last Admin Trade Name Eder PRN Reason Stop Dose Admin Diphenhydramine HCl 50 mg 04/29/25 09:38 04/29/25 09:55 Diphenhydramine Hcl 50 Mg/Ml Vial IVPUSH 04/29/25 09:39 50 mg ONCE ONE Administration Famotidine 20 mg 04/29/25 09:38 04/29/25 09:55 Famotidine/Pf 20 Mg/2 Ml Vial IVPUSH 04/29/25 09:39 20 mg ONCE ONE Administration Methylprednisolone Sodium Succinate 60 mg 04/29/25 09:38 04/29/25 09:55 Methylprednisolone Sod Succ 125 Mg/2 Ml Vial IVPUSH 04/29/25 09:39 60 mg ONCE ONE Administration Medical Decision Making Medical Decision Making MDM Narrative: 34-year-old male arriving to the emergency department today for evaluation of bee sting to his face that occurred 30 minutes prior to arrival. He received 25 mg of a tablet of Benadryl and 500 mg of a tablet of Motrin prior to arrival. The patient was promptly seen and evaluated. They arrived with concerns for an allergic reaction. ?Patient had angioedema of eyes and nasal congestion only. ?He stated that he did not feel throat swelling with shortness of breath. ?I was not concerned about anaphylaxis/urticaria at this time, but discussed monitoring for a few hours with patient. ?IV benadryl, Solu-Medrol, and Pepcid were ordered. ?Patient had already taken Benadryl but only 25 mg. ?After receiving the medications the patient was feeling much better. At two hours swelling of eyelids had significantly gone done. ?As this did not appear congruent with anaphylaxis I did not feel it was indicated to monitor patient for a total of 4- 6 hours.?He had no recurrence of reaction. ?He was well-appearing and resting comfortably. ?He was in no acute distress. ?He did not appear ill or toxic. ?He was speaking in full sentences without difficulty. ?He denied any symptoms. ?He denied any chest pain, shortness of breath, or any feelings of throat swelling. ?Upon reevaluation of the patient's oropharynx there was no angioedema. ?There was no erythema or exudate. ?Uvula was midline and there was no peritonsillar abscess. ?The patient felt well and at their baseline. ?I do believe this was appropriate for discharge. ?I advised follow-up with his primary care physician. ?Patient was given a prescription for EpiPen's. ?I advised to return to the ED with any new or worsening symptoms or if he had any other concerns. ?Advised him that should he feel the need to use his EpiPen that he should promptly call 911 after administering it. Discussed proper use and demonstrated it. The patient was agreeable to the plan. ?He was discharged in stable condition. Differential Diagnosis Differential Diagnoses: The differential diagnosis associated with the presentation includes see MDM Admission/Observation Consideration of admission/observation: Escalation of care including admission/observation considered Patient would have been admitted to the hospital had his work up had any findings where hospital admission was appropriate and his clinical presentation warranted hospital admission. Prescription Management I considered prescription management with: Other (Steroid and EpiPen) Discharge Plan Discharge Clinical Impression: Angio-edema, Bee sting reaction Patient Disposition: Home, Self-Care Instructions: Insect Bite or Sting (ED), Angioedema (ED) Additional Instructions: You were seen and treated in the emergency department today after receiving a bee sting to your left side of your head which resulted in both her eyelids being swollen. This was not congruent with anaphylaxis which is the life- threatening allergic reaction to bee sting which results in your airway closing. While here you received IV medications to help reduce the swelling of your face including Solu-Medrol which is a steroid they would not give him Benadryl which is an antihistamine as well as famotidine which is another histamine jim. After 2 hours your symptoms have significantly reduced therefore sought you were stable to go home. I have sent you a prescription for prednisone which you may start tomorrow as you received a dose via IV here this will help prevent a rebound reaction. I have also given you an EpiPen to use this was just in case you feel that your tongue or lip started to swell or as if her airway is closing or difficulty to debride. We discussed use of this and how it can go through jeans and cargo pants count 210 after injecting it and then release. Immediately call 911 after this administration. You should carry on you at all times as sometimes the 2nd time it person is exposed to an allergen such as bees in your case it can be a worse reaction. Large local reactions ? Approximately 10 percent of individuals develop exaggerated redness and swelling at the site of the sting that gradually enlarg es over one to two days. This response is called a large local reaction (LLR). LLRs peak at approximately 48 hours and then gradually resolve over 5 to 10 days. The area of swelling typically measures about 10 cm in diameter, not length. Treatment ? Treatment of LLRs is based upon symptoms. We know of no published studies comparing different treatments. Our approach is described below: ?Cold compresses are soothing acutely. The limb should be elevated if the sting is on an extremity. ?If the reaction is painful, nonsteroidal antiinflammatory drugs (NSAIDs) can be helpful. Pruritus can be treated with oral antihistamines. You should do a non drowsy in the morning afternoon and reserve Benadryl at night times do this for 24 hours until symptoms have 100% resolved. Significant sedation and impairment of performance (eg, fine motor skills, driving skills, and reaction times) occur in more than 20 percent of patients. Anticholinergic side effects include dry mouth, diplopia, blurred vision, urinary retention, or vaginal dryness. This is most prominent in Benadryl. Benadryl (Diphenhydramine): Adults and Children 12 years and older: 25 to 50 mg every 4 to 6 hours as needed. Cetirizine (Zyrtec): Adults and Children 12 years and older: 10 to 20 mg twice daily as needed Claritin (loratidine) Adults and children 6 years and older: 10 -20 mg once daily as needed ( twice daily in adults if needed) Lissette (fexofedadine) Adults and Children ages 12 and older: 180 mg daily as needed (adults may be twice a day) Hymenoptera stings are considered clean for the purposes of tetanus vaccination. Stings are very superficial, and there are no published reports of tetanus infection following Hymenoptera stings. A tetanus booster is not necessary following a sting unless there was a concomitant soil-contaminated injury. Prescriptions: New prednisone 20 mg tablet 40 mg PO DAILY Qty: 8 0RF Rx Instructions: start on 04/30/2025 epinephrine [EpiPen 2-Thom] 0.3 mg/0.3 mL auto-injector 0.3 mg IM Q10M PRN (Reason: anaphylaxis) Qty: 2 0RF Rx Instructions: for 2 doses No Action buprenorphine-naloxone 4-1 mg film 7 mg sublingual DAILY doxycycline hyclate 100 mg capsule 100 mg PO BID Qty: 20 0RF Referrals: Physician,None [Primary Care Provider, Medical] Stand Alone Forms: Work/School Release Interventions: ED Discharge Assessment Last Done: 04/29/25 12:23 Discharge Date/Time: 04/29/25 12:24 Print Language: Belizean
--- OUTSIDE RECORDS SUMMARY | 2025-04-29 09:50 | XMS_ITS | Clinical Summary ---
Author Organization [facility] Address [address] [place] [id number] Phone Care Team Providers Care Wrapper And Preserver Name Role Phone Physician, No Pcp Primary Care Provider Unavaila ble Allergies Active Allergy Reactions Criticality Noted Date Comments Buprenorphine-Naloxone Anaphylaxis High 01/14/2025 Social History Tobacco Use Types Packs/Day Years Used Date Smoking Tobacco: Never Assessed Sex and Gender Information Value Date Recorded Sex Assigned at Male 01/14/2025 9:52 PM EDT Legal Sex Male 9:10 AM EST Gender Identity Male 01/14/2025 9:52 PM EDT Sexual Orientation Straight 01/14/2025 9: 52 PM EDT Last Filed Vital Signs Vital Sign Reading Time Taken Comments Blood Pressure 118/79 01/14/2025 8:42 PM EDT Pulse 91 01/14/2025 8:42 PM EDT Temperature 37 C (98.6 F) 01/14/2025 8:42 PM EDT Respiratory Rate 18 01/14/2025 8:42 PM EDT Oxygen Saturation 98% 01/14/2025 8:42 PM EDT Inhaled Oxygen Concentration - - Weight 86.2 kg (190 lb) 01/14/2025 8:42 PM EDT Height 172.7 cm (5' 8 ) 01/14/2025 8:42 PM EDT Body Mass Index 28.89 01/14/2025 8:42 PM EDT Plan of Treatment Health Maintenance Due Date Last Done Comments Hepatitis B Vaccines (1 of 3 - 19+ 3-dose series) 12/05/2010 HIV Screening 08/26/2022 Hepatitis C Screening 08/26/2022 Social Influencers of Health Screening 08/26/2022 COVID-19 Vaccine ( - 2023-2 5 season) 2024 Depression Screening 09/23/2024 Influenza Vaccine (#1) 2025 DTaP,Tdap,and Td Vaccines (2 - Td or Tdap) 04/05/2034 04/05/2024 Varicella Vaccines Completed 08/31/2010, 10/14/1997 HIB Vaccines Aged Out No longer eligi ble based on patient's age to complete this topic HPV Vaccines Aged Out No longer eligi ble based on patient's age to complete this topic Hepatitis A Vaccines Aged Out No long er eligible based on patient's age to complete this topic IPV Vaccines Aged Out No longer eligi ble based on patient's age to complete this topic MMR Vaccines Aged Out No longer eligi ble based on patient's age to complete this topic Meningococcal ACWY Vaccine Aged Out N o longer eligible based on patient's age to complete this topic Meningococcal B Vaccine Aged Out No l onger eligible based on patient's age to complete this topic Pneumococcal Vaccine: Pediatrics (0 to 5 Years) and At-Risk Patients (6 to 49 Years) Aged Out No longer eligible b ased on patient's age to complete this topic RSV Immunization Patients Under 20 months Aged Out No longer eligible b ased on patient's age to complete this topic Insurance [place] Member Subscriber Plan / Payer (Ef fective 2025-Present) Name:Riki Renee Relation to Subscriber:Self Name:Riki Renee Payer ID:[id number] Group ID:Not on file Type:Not on file Address: [facility] ATTN:[employer] [address] [place] [id number] [employer] [place] MEDICAID ADVANTAGE Care Teams Wrapper And Preserver Relationship Specialty Start Date End Date Physician, No Pcp PCP - General 01/14/25
--- OUTSIDE RECORDS SUMMARY | 2025-04-29 09:50 | XMS_ITS | Clinical Summary ---
Author Organization [facility] Address [address] [place] [address] Care Team Providers Care Program Aide Name Role Phone Unknown Primary Care Provider [phone] Allergies No known active allergies Medications No known medications Social History Tobacco Use Types Packs/Day Years Used Date Smoking Tobacco: Never Assessed Sex and Gender Information Value Date Recorded Sex Assigned at Not on file Legal Sex Male 6:22 PM EDT Gender Identity Not on file Sexual Orientation Not on file Last Filed Vital Signs Vital Sign Reading Time Taken Comments Blood Pressure 115/62 03/21/2020 6:34 PM EDT Pulse 66 03/21/2020 6:34 PM EDT Temperature 36.7 C (98.1 F) 03/21/2020 6:34 PM EDT Respiratory Rate - - Oxygen Saturation 98% 03/21/2020 6:34 PM EDT Inhaled Oxygen Concentration - - Weight 77.1 kg (170 lb) 03/21/2020 6:34 PM EDT Height 172.7 cm (5' 8 ) 03/21/2020 6:34 PM EDT Body Mass Index 25.85 03/21/2020 6:34 PM EDT Plan of Treatment Health Maintenance Due Date Last Done Comments Hepatitis C Virus Screening 1991 HIV Screening 12/05/2004 DTaP/Tdap/Td Vaccines (1 - Tdap) 12/05/2010 Hepatitis B Vaccines (1 of 3 - 19+ 3-dose series) 12/05/2010 COVID-19 Vaccine (2023-2 5 season) 2024 HPV Vaccines Aged Out No longer eligi ble based on patient's age to complete this topic Pneumococcal Vaccine: Pediat constance (0-5 Years) and At-Risk Patients (6 to 49 Years) Aged Out No longer eligible b ased on patient's age to complete this topic Care Teams Program Aide Relationship Specialty Start Date End Date Unknown Unknow Provider Address PCP - General 03/21/20
[2025-04-29 11:13] VITALS: BP 110/78; PULSE 60; RESP 17; TEMP 36.2; O2SAT 100
[2025-04-29 11:27] VITALS: PULSE 62; RESP 22; O2SAT 97
[2025-04-29 12:23] VITALS: BP 107/71; PULSE 58; RESP 18; TEMP 37.1; O2SAT 97
== END 2025-04-29 12:24 | disposition home or self-care (01) ==
PROVIDERS: Emergency Provider Emergency Medicine
DX: T63.441A Toxic effect of venom of bees, accidental (unintentional), initial encounter (principal); T78.3XXA Angioneurotic edema, initial encounter; Y92.69 Other specified industrial and construction area as the place of occurrence of the external cause
CPT/HCPCS: 96374; 96375; 99284; J1200; J1308; J2919